=== PATIENT | male | born 1985 | race Caucasian/White ===

== ENCOUNTER 2022-04-18 12:04 | Emergency (ER) | payer MEDICAID ==
[~2022-04-18] VITALS: Ht 182.9 cm; Wt 104.3 kg
--- NOTE | 2022-04-18 12:22 | NUR ---
RECEIVED PT 37 YRS MALE CAME FROM HOME C/O SWALLEN AND ABSCESS ON SCROTM HX SAME SITE X 4
[2022-04-18] MEDS ORDERED: LIDOCAINE HCL/PF 1% 30 ML VIAL TP ONE (12:30)
--- NOTE | 2022-04-18 12:40 | NUR ---
I&D DONE AT BED SIDE BY DR Allyn FORREST PT TOLORATED PROCEDURE NO PAIN
[2022-04-18] MEDS ORDERED: LIDOCAINE HCL/MPF 1% 30 ML VIAL IJ ONE (12:44)
--- NOTE | 2022-04-18 13:02 | NUR ---
Patient discharged to home in stable condition. Written and verbal after care instructions given. Patient verbalizes understanding of instruction.
[2022-04-18 13:06] VITALS: BP 151/72
== END 2022-04-18 13:07 | disposition home or self-care (01) ==
LOC: ER 12:11
DX: N49.2 Inflammatory disorders of scrotum (principal); F32.A Depression, unspecified; F41.9 Anxiety disorder, unspecified
CPT/HCPCS: 10060; 99282; J3490 ×2

== ENCOUNTER 2022-07-04 10:18 | Emergency (ER) | payer MEDICAID ==
[~2022-07-04] VITALS: Ht 182.9 cm; Wt 104.3 kg
[2022-07-04 10:27] VITALS: BP 145/95
== END 2022-07-04 12:41 | disposition home or self-care (01) ==
LOC: ER 10:23
DX: S62.101D Fracture of unspecified carpal bone, right wrist, subsequent encounter for fracture with routine healing (principal); F32.A Depression, unspecified; F41.9 Anxiety disorder, unspecified; Z98.890 Other specified postprocedural states; Z60.2 Problems related to living alone; X58.XXXD Exposure to other specified factors, subsequent encounter
CPT/HCPCS: 73110